=== PATIENT | male | born 1945 | race Caucasian/White ===

== ENCOUNTER 2024-11-19 11:11 | Emergency (ER) | payer MEDICARE ==
[2024-11-19] MEDS ORDERED: Morphine 4 MG/ML VIAL ONE (13:23)
[2024-11-19] MEDS ORDERED: Midazolam HCl 2 mg/2 ml Vial ONE (13:23)
[2024-11-19] MEDS ORDERED: Ondansetron PF 4 MG/2 ML Vial ONE (13:24)
[2024-11-19] MEDS ORDERED: KETAMINE 100 MG/ML (5ML VIAL) ONE (13:24)
== END 2024-11-19 14:39 | disposition home or self-care (01) ==
LOC: ERS 11:11
DX: S43.014A Anterior dislocation of right humerus, initial encounter (principal); I10 Essential (primary) hypertension; W01.0XXA Fall on same level from slipping, tripping and stumbling without subsequent striking against object, initial encounter
CPT/HCPCS: 73030 ×2; J2250; J2270; J2405; 23650; 96374; 96375